=== PATIENT | female | born 1945 | race Hispanic/Latino ===

== ENCOUNTER 2019-02-23 08:57 | Emergency (ER) | payer MEDICARE ==
[~2019-02-23] VITALS: Ht 160 cm; Wt 68.0 kg
[~2019-02-23 08:57] MED LIST: ADVAIR HFA 115-12 GM; ALENDRONATE SOD70 MG PO; CRESTOR10 MG PO; GABAPENTIN100 MG PO; METHOCARBAMOL750 MG PO; SINGULAIR10 MG PO; TYLENOL WITH C1 EACH PO
[2019-02-23] MEDS ORDERED: SODIUM CHLORIDE 0.9% 1000ML 1,000 ML IV SCH (09:15)
[2019-02-23] MEDS ORDERED: SODIUM CHLORIDE 0.9% 50ML 50 ML ONE (09:32)
[2019-02-23] MEDS ORDERED: IOPAMIDOL 370 MG/ML 200 ML INFUS..BTL INJ ONE (09:32)
--- NOTE | 2019-02-23 09:38 | NUR ---
HEMOCCULT DONE WITH DR CHANG NURSE AT BEDSIDE, PT TOLERATED WELL
--- NOTE | 2019-02-23 10:13 | Diagnostic Imaging Report ---
Chest, PA and lateral. History: Cough. Comparison: None available. Discussion: The cardiomediastinal silhouette and pulmonary vasculature are within normal limits. The lungs are clear without evidence of consolidation or effusion. There are no acute osseous abnormalities. The soft tissues are unremarkable. IMPRESSION: No radiographic evidence of acute cardiopulmonary abnormality. Signed by: Ar Goel MD on 02/23/2019 10:09 AM
[2019-02-23] MEDS ORDERED: SODIUM CHLORIDE 0.9% 1000ML 1,000 ML ONE (10:18)
[2019-02-23] MEDS ORDERED: POTASSIUM CHLORIDE 20 MEQ TAB CR PO STA (10:23)
--- NOTE | 2019-02-23 10:25 | Diagnostic Imaging Report ---
CT of the abdomen and pelvis History: Abdominal pain, blood in stool Comparison: None available. Technique: Multidetector CT scanning of the abdomen and pelvis was performed from the level of the lung bases to the inferior pubic ramus, with IV contrast DOSE REDUCTION: The examination was performed according to departmental dose-optimization program which includes automated exposure control, adjustment of the mA and/or kV according to patient size and/or use of iterative reconstruction technique. Discussion: The lung bases are clear. In segment IV of the liver there is a low attenuating 2.3 x 2.0 cm lesion with peripheral nodular enhancement which is most likely a hemangioma. No suspicious hepatic lesions are identified. The gallbladder is present and nondistended. No radiopaque gallstones are identified. There is no intrahepatic or extrahepatic dilatation. The spleen is within normal limits. The bilateral adrenal glands are unremarkable. The pancreas is normal in appearance. There is no pancreatic ductal dilatation. The kidneys are normal in size and enhance symmetrically. No hydroureteronephrosis is present. No renal calculi are identified. The stomach, small, and large bowel are nondistended. There is no evidence of obstruction. A 2 cm duodenal diverticulum is present. The appendix is normal in caliber. No bowel wall thickening is appreciated. There is no free intraperitoneal air or ascites. The abdominal aorta is of normal course and caliber. The uterus and bilateral adnexa are within normal limits. The urinary bladder is normal. No enlarged abdominal or retroperitoneal lymph nodes are identified. No acute osseous abnormalities are identified. There is T12 vertebral body hemangioma. IMPRESSION: 1. No CT evidence of acute abdominal or pelvic pathology. 2. 2.3 cm hypoattenuating left hepatic lesion which is most likely a hemangioma. No suspicious hepatic lesions identified. Signed by: Ar Goel MD on 02/23/2019 10:21 AM
[2019-02-23] MEDS ORDERED: POTASSIUM CHLORIDE 20MEQ/100ML 0 ML ONE (10:29)
[2019-02-23] MEDS ORDERED: POTASSIUM CHLORIDE 10MEQ/100ML 100 ML IV ONE ×2 (10:30)
[2019-02-23] MEDS ORDERED: COLACE100 MG PO (10:35)
[2019-02-23] MEDS ORDERED: POTASSIUM CHLO20 ME1 PO (10:35)
[2019-02-23 13:00] VITALS: BP 142/85
== END 2019-02-23 13:03 | disposition home or self-care (01) ==
LOC: FSED 08:57
DX: K92.2 Gastrointestinal hemorrhage, unspecified (principal); E87.6 Hypokalemia; K52.9 Noninfective gastroenteritis and colitis, unspecified
CPT/HCPCS: 71046; 74177; 80053; 81003; 82270; 83605; 85025; 86850; 86900; 93005; 99284; J3480; J7030; Q9967